=== PATIENT | female | born 1975 | race Caucasian/White ===

== ENCOUNTER 2017-12-15 11:11 | Emergency (ER) | payer MEDICAID | END 2017-12-15 14:04 | disposition home or self-care (01) | LOC: FTE 11:11 | DX: S59.901A Unspecified injury of right elbow, initial encounter (principal); I10 Essential (primary) hypertension; W18.39XA Other fall on same level, initial encounter; Y92.9 Unspecified place or not applicable | CPT/HCPCS: 29105; 73080-RT; 99283-25 ==